=== PATIENT | male | born 1970 | race Caucasian/White ===

== ENCOUNTER → 2016-09-23 | Outpatient (CLI) | payer OTHER ==
[~2016-09-23] MED LIST: CYCL10TA PO; ELID1CRE10 TOP; LORT5TAB PO; TYLE325T5 PO
--- NOTE | 2016-09-23 11:01 | REP ---
MR THORACIC SPINE WITHOUT CONTRAST: HISTORY: Back pain. A small left paracentral disc protrusion is present at the T1-2 level. There is minimal effacement of the thecal sac without spinal cord compression. The T1 neural foramina are patent. A small right paracentral disc protrusion is present at the T2-3 level. There is minimal effacement of the thecal sac without spinal cord compression. The T2 neural foramina are patent. A small left paracentral disc protrusion is present at the T5-6 level. There is minimal effacement of the thecal sac without spinal cord compression. The T5 neural foramina are patent. A small left paracentral disc protrusion is present at the T6-7 level. There is minimal effacement of the thecal sac without spinal cord compression. The T6 neural foramina are patent. A disc bulge is present at the T8-9 level. There is minimal effacement of the thecal sac without spinal cords compression. The T8 neural foramina are patent. A disc bulge is present at the T10-11 level. There is minimal effacement of the thecal sac without spinal cord compression. The T10 neural foramina are patent. A disc bulge is present at the T11-12 level. There is minimal effacement of the thecal sac without spinal cord compression. The T11 neural foramina are patent. A disc bulge is present at the T12-L1 level. There is minimal effacement of the thecal sac without spinal cord compression. The T12 neural foramina are patent. There is no other disc bulge or herniation. The remaining neural foramina are patent. The spinal cord is normal in signal intensity. There are old compression fractures of the T7 and 8 vertebral bodies with minimal height loss. IMPRESSION: 1. Small disc protrusions at the T1-2, T2-3, T5-6 and T6-7 levels without spinal cord compression. 2. Disc bulges at the T8-9 and T10-11 through T12-L1 levels without spinal cord compression. 3. Old compression fractures of the T7 and T8 vertebral bodies with minimal height loss. Signed by Jose Nguyen MD 09/23/2016 11:04 A
== END ==
LOC: M RAD 09:29
PROVIDERS: ATTEND Nurse Practitioner Family
DX: M51.24 Other intervertebral disc displacement, thoracic region (principal); M96.1 Postlaminectomy syndrome, not elsewhere classified; M47.812 Spondylosis without myelopathy or radiculopathy, cervical region; M54.12 Radiculopathy, cervical region